=== PATIENT | female | born 1945 | race Caucasian/White ===

== ENCOUNTER 2025-03-16 12:05 | Emergency (ER) | payer OTHER ==
[~2025-03-16] VITALS: Ht 167.6 cm; Wt 69.8 kg
[2025-03-16] MEDS ORDERED: AMOCLA875 PO (12:52)
[2025-03-16] MEDS ORDERED: CIPROFLOX-DEXA7.5 ML RIGHTEAR (12:52)
== END 2025-03-16 13:30 | disposition home or self-care (01) ==
LOC: ER 12:05
DX: H66.91 Otitis media, unspecified, right ear (principal); H72.91 Unspecified perforation of tympanic membrane, right ear
CPT/HCPCS: 99282